=== PATIENT | female | born 1980 | race Caucasian/White ===

== ENCOUNTER → 2017-01-07 | Outpatient (CLI) | payer BC ==
--- NOTE | 2017-01-07 13:09 | Diagnostic Imaging Report ---
PROCEDURE: MRI lumbar spine. TECHNIQUE: Multiplanar, multisequence MRI of the lumbar spine was performed without contrast. INDICATION: Back pain. FINDINGS: There is satisfactory alignment of the posterior spinal line. The vertebral body heights are preserved. There are preserved disc heights also. There is minimal disc desiccation at L4/L5 level. There are minimal reactive marrow changes seen at lower endplate of L4 level, probably degenerative related. Also, lower endplate of L2 vertebral body demonstrates similar mild reactive edema. No suspicious mass. The cauda equina and conus medullaris appear grossly unremarkable. The conus terminates at L1 level. T12/L1: Unremarkable. L1/L2: Unremarkable. L2/L3: No disc herniation. No spinal canal or foraminal stenosis. L3/L4: No disc herniation. There is mild facet hypertrophy. No central canal, lateral recess or foraminal stenosis. L4/L5: There is a diffuse disc bulge and mild facet arthropathy. No central canal stenosis. There is mild to moderate narrowing of the lateral recess bilaterally. The neural foramina demonstrate mild stenosis on the left side and no significant stenosis on the right. L5/S1: There is no significant disc bulge. The mild facet hypertrophy is seen. No central canal stenosis. There is mild narrowing of the lateral recess bilaterally. The foramina demonstrate no significant stenosis. IMPRESSION: Mild lower lumbar spine degenerative disc and facet changes. Dictated by: Dictated on workstation # [id number]
== END ==
LOC: RAD 11:46
PROVIDERS: ATTEND Orthopaedic Surgery
DX: M54.16 Radiculopathy, lumbar region (principal)
CPT/HCPCS: 72148

== ENCOUNTER → 2021-09-19 | Outpatient (CLI) | payer BC ==
[2021-09-19 13:02] LABS: BILIRUBIN,URINE NEGATIVE (NEGATIVE); CLARITY,URINE CLOUDY; COLOR,URINE YELLOW; GLUCOSE, URINE (UA) NEGATIVE (NEGATIVE); KETONES,URINE NEGATIVE (NEGATIVE); LEUKOCYTE ESTERASE ,URINE NEGATIVE (NEGATIVE); NITRITE,URINE NEGATIVE (NEGATIVE); PH,URINE 5.5 (5-9); PROTEIN,URINE NEGATIVE (NEGATIVE)
[2021-09-19 13:03] LABS: BACTERIA,URINE MODERATE /HPF
[2021-09-19 13:05] LABS: URINE OTHER CLUE CELLS NOTED /HPF
== END ==
LOC: LAB FS 12:24
PROVIDERS: ATTEND Pediatrics
DX: R35.0 Frequency of micturition (principal); R30.9 Painful micturition, unspecified
CPT/HCPCS: 81000; 87077; 87088

== ENCOUNTER 2022-04-13 12:17 | Emergency (ER) | payer SELFPAY ==
[~2022-04-13] VITALS: Ht 162 cm; Wt 56.0 kg
[2022-04-13] MEDS ORDERED: fentaNYL INJ 100 MCG/2 ML AMP ONE (12:24)
--- NOTE | 2022-04-13 12:24 | ED GU-Female ---
General Stated Complaint: STOMACH AILMENT Source: patient Exam Limitations: no limitations History of Present Illness Date Seen by Provider: Apr 13, 2022 Time Seen by Provider: 12:19 Initial Comments 41-year-old female with no pertinent past medical history coming in due to severe constant sharp right flank pain, started roughly 2 hours ago, associated with nonbloody nonbilious vomiting, and she noticed blood in her urine recently. This is never happened before. She had a hydrocodone at home which she took which has not helped as of yet. LMP was roughly 1 week ago. She is otherwise denying any other acute complaints. Allergies and Home Medications Allergies Coded Allergies: No Known Drug Allergies (Unverified , 04/13/22) Patient Home Medication List Home Medication List Reviewed: Yes Ketorolac Tromethamine (Ketorolac Tromethamine) 10 Mg Tablet, 10 MG PO Q6H Prescribed by: HOPE DILLON on 04/13/22 1359 Ondansetron (Ondansetron Odt) 4 Mg Tab.rapdis, 4 MG PO Q6H PRN for NAUSEA/VOMITING-1ST LINE Prescribed by: HOPE DILLON on 04/13/22 1359 Oxycodone HCl (Oxycodone HCl) 5 Mg Tablet, 5 MG PO Q6H PRN for PAIN-SEVERE (8- 10) Prescribed by: HOPE DILLON on 04/13/22 1359 Tamsulosin HCl (Flomax) 0.4 Mg Cap, 0.4 MG PO DAILY Prescribed by: HOPE DILLON on 04/13/22 1359 Review of Systems Review of Systems Constitutional: No fever EENTM: No blurred vision Respiratory: No cough Cardiovascular: No chest pain Gastrointestinal: nausea, vomiting Genitourinary: flank pain, hematuria Musculoskeletal: no symptoms reported Skin: no symptoms reported Psychiatric/Neurological: No Symptoms Reported Endocrine: No Symptoms Reported Hematologic/Lymphatic: No Symptoms Reported All Other Systemes Reviewed Negative Unless Noted: Yes Past Jujqtkh-Lqzxpq-Jwavsb Hx Patient Social History Tobacco Use?: No Substance use?: No Alcohol Use?: No Past Medical History Surgeries: No Physical Exam Vital Signs Vital Signs - First Documented 04/13/22 13:08 Temp 36.2 Pulse 87 Resp 22 B/P (MAP) 111/64 (80) Pulse Ox 100 Capillary Refill : Height, Weight, BMI Height: '" Weight: lbs. oz. kg; BMI Method: General Appearance: WD/WN, moderate distress HEENT: PERRL/EOMI, normal ENT inspection, pharynx normal Neck: non-tender, full range of motion, supple, normal inspection Cardiovascular: regular rate, rhythm, no edema, no murmur Respiratory: chest non-tender, lungs clear, normal breath sounds, no respiratory distress, no accessory muscle use Gastrointestinal: normal bowel sounds, non tender, soft; No distended, No guarding, No rebound Back: normal inspection, no vertebral tenderness, CVA tenderness (R) Extremities: normal range of motion, non-tender, normal inspection, no pedal edema, no calf tenderness, normal capillary refill Neurologic/Psychiatric: no motor/sensory deficits, alert, normal mood/affect Skin: normal color, warm/dry Lymphatic: no adenopathy Progress/Results/Core Measures Suspected Sepsis SIRS Temperature: Pulse: Respiratory Rate: Laboratory Tests 04/13/22 12:25: White Blood Count 13.2H Blood Pressure / Mean: Laboratory Tests 04/13/22 12:25: Creatinine 0.91, Platelet Count 351, Total Bilirubin 0.9 Results/Orders Lab Results Laboratory Tests Test 04/13/22 12:25 04/13/22 13:33 Range/Units White Blood Count 13.2 H 4.3-11.0 10^3/uL Red Blood Count 4.49 3.80-5.11 10^6/uL Hemoglobin 14.6 11.5-16.0 g/dL Hematocrit 42 35-52 % Mean Corpuscular Volume 94 80-99 fL Mean Corpuscular Hemoglobin 33 25-34 pg Mean Corpuscular Hemoglobin Concent 35 32-36 g/dL Red Cell Distribution Width 12.1 10.0-14.5 % Platelet Count 351 130-400 10^3/uL Mean Platelet Volume 9.8 9.0-12.2 fL Immature Granulocyte % (Auto) 0 % Neutrophils (%) (Auto) 83 H 42-75 % Lymphocytes (%) (Auto) 12 12-44 % Monocytes (%) (Auto) 5 0-12 % Eosinophils (%) (Auto) 0 0-10 % Basophils (%) (Auto) 1 0-10 % Neutrophils # (Auto) 11.0 H 1.8-7.8 10^3/uL Lymphocytes # (Auto) 1.5 1.0-4.0 10^3/uL Monocytes # (Auto) 0.6 0.0-1.0 10^3/uL Eosinophils # (Auto) 0.0 0.0-0.3 10^3/uL Basophils # (Auto) 0.1 0.0-0.1 10^3/uL Immature Granulocyte # (Auto) 0.0 0.0-0.1 10^3/uL Sodium Level 143 135-145 MMOL/L Potassium Level 3.9 3.6-5.0 MMOL/L Chloride Level 105 98-107 MMOL/L Carbon Dioxide Level 18 L 21-32 MMOL/L Anion Gap 20 H 5-14 MMOL/L Blood Urea Nitrogen 13 7-18 MG/DL Creatinine 0.91 0.60-1.30 MG/DL Estimat Glomerular Filtration Rate 81 BUN/Creatinine Ratio 14 Glucose Level 137 H 70-105 MG/DL Calcium Level 10.2 H 8.5-10.1 MG/DL Corrected Calcium 8.5-10.1 MG/DL Total Bilirubin 0.9 0.1-1.0 MG/DL Aspartate Amino Transf (AST/SGOT) 18 5-34 U/L Alanine Aminotransferase (ALT/SGPT) 11 0-55 U/L Alkaline Phosphatase 68 40-136 U/L Total Protein 7.4 6.4-8.2 GM/DL Albumin 5.0 H 3.2-4.5 GM/DL Lipase 12 8-78 U/L Urine Color YELLOW Urine Clarity CLOUDY Urine pH 6.0 5-9 Urine Specific Hendricks >=1.030 1.016-1.022 Urine Protein 1+ H NEGATIVE Urine Glucose (UA) NEGATIVE NEGATIVE Urine Ketones 3+ H NEGATIVE Urine Nitrite NEGATIVE NEGATIVE Urine Bilirubin 1+ H NEGATIVE Urine Urobilinogen 0.2 < = 1.0 MG/DL Urine Leukocyte Esterase TRACE H NEGATIVE Urine RBC (Auto) 3+ H NEGATIVE Urine RBC 5-10 H /HPF Urine WBC 10-25 H /HPF Urine Squamous Epithelial Cells >50 H /HPF Urine Crystals NONE /LPF Urine Bacteria MODERATE H /HPF Urine Casts NONE /LPF Urine Mucus NEGATIVE /LPF Urine Culture Indicated NO Urine Test NEGATIVE NEGATIVE My Orders Orders - HOPE DILLON MD Fentanyl Inj (Sublimaze Injection) (04/13/22 12:30) Ketorolac Injection (Toradol Injection) (04/13/22 12:30) Ondansetron Injection (Zofran Injectio (04/13/22 12:30) Ct Abdomen/Pelvis Wo (04/13/22 12:24) Cbc With Automated Diff (04/13/22 12:24) Comprehensive Metabolic Panel (04/13/22 12:24) Hcg,Qualitative Urine (04/13/22 12:24) Ua Culture If Indicated (04/13/22 12:24) Lipase (04/13/22 12:24) Fentanyl Inj (Sublimaze Injection) (04/13/22 12:24) Hydromorphone Injection (Dilaudid Inject (04/13/22 12:30) Cefdinir Capsule (Omnicef Capsule) (04/13/22 14:00) Oxycodone Immediate Rel Tablet (Oxyir Ta (04/13/22 14:15) Medications Given in ED Current Medications Medications Dose Ordered Sig/Con Route Start Time Stop Time Status Last Admin Dose Admin Cefdinir 300 mg ONCE ONCE PO 04/13/22 14:00 04/13/22 14:01 DC 04/13/22 14:00 300 MG Fentanyl Citrate 50 mcg ONCE ONCE IVP 04/13/22 12:30 04/13/22 12:32 DC 04/13/22 12:27 50 MCG Hydromorphone HCl 0.5 mg ONCE PRN IV 04/13/22 12:30 04/13/22 12:33 0.5 MG Ondansetron HCl 4 mg ONCE ONCE IVP 04/13/22 12:30 04/13/22 12:32 DC 04/13/22 12:27 4 MG Vital Signs/I&O 04/13/22 13:08 Temp 36.2 Pulse 87 Resp 22 B/P (MAP) 111/64 (80) Pulse Ox 100 Capillary Refill : Progress Note : Progress Note 41-year-old female with above history coming in due to right flank pain. ABCs were intact and vitals were stable on presentation although she was in signifi cant pain. An IV was placed and she was given fentanyl for pain and Zofran for her nausea. Basic labs obtained and urinalysis does have blood in it with some bacteria, difficult to ascertain if there is infection as well. We will give her cefdinir just in case. CT abdomen and pelvis without contrast concerning for right-sided stone with ureterolithiasis and hydronephrosis. Patient is resting comfortably now, and I believe she is a good candidate for a trial of passage at home. I will give her information on how to follow-up with Dr. Silverio. She was then discharged home in stable condition with strict return precautions Diagnostic Imaging Diagonstic Imaging: CT Plain Films/CT/US/NM/MRI: abdomen, pelvis Comments [facility] [place], [place] NAME: MO RUST [facility] REC#: [id number] PT STATUS: REG ER : 1980 PHYSICIAN: HOPE DILLON MD ADMIT DATE: 04/13/22/ER FS Signed Date of Exam:04/13/22 CT ABDOMEN/PELVIS WO PROCEDURE: CT abdomen and pelvis without contrast. TECHNIQUE: Multiple contiguous axial images were obtained through the abdomen and pelvis without the use of intravenous contrast. Auto Exposure Controls were utilized during the CT exam to meet ALARA standards for radiation dose reduction. INDICATION: Right flank pain. I have no priors. A small calculus of 1.6 mm on the right is nearly completely through the ureterovesical junction and almost passed fully into the bladder lumen. The stone results in a mild to moderate degree of upstream right-sided hydroureteronephrosis with no urinoma, subcapsular collection or abscess. No additional radiopaque urinary tract stones are found. Contralateral left kidney unobstructed. Gallbladder surgically absent. The uterus and adnexa unremarkable. There is no appendicitis or diverticulitis. The remaining abdominal pelvic solid and hollow viscera unobstructed, nonfocal and nonacute. IMPRESSION: Mild to moderate degree of right hydroureteronephrosis is secondary to a calculus at the distal right UVJ measuring 1.6 mm with no fluid collection. No other significant abnormality. Dictated by: Dictated on workstation # [id number] Dict: 04/13/22 1303 Trans: 04/13/22 1317 [facility] [id number] Interpreted by: GERARD ART Electronically signed by: GERARD ART 04/13/22 1317 Departure Impression Primary Impression: Ureterolithiasis Disposition: 01 HOME, SELF-CARE Condition: Stable Departure-Patient Inst. Decision time for Depature: 13:56 Referrals: SALLY MONTES MD (PCP/Family) Primary Care Physician RADHA SILVERIO MD Patient Instructions: Kidney Stones (DC) Add. Discharge Instructions: Take the Toradol on schedule and Zofran as needed for nausea. Take the oxycodone if pain is too much. He also take the Flomax to try to help the stone come out. Follow-up with Steve who is the urologist who is capable of taking s tones out if it does not pass by itself. Be sure to urinate through the strainer. Scripts Cefdinir (Cefdinir) 300 Mg Capsule 300 MG PO BID for 5 Days, #10 CAP Prov: HOPE DILLON MD 04/13/22 Ondansetron (Ondansetron Odt) 4 Mg Tab.rapdis 4 MG PO Q6H PRN for NAUSEA/VOMITING-1ST LINE for 5 Days, #20 TAB Prov: HOPE DILLON MD 04/13/22 Ketorolac Tromethamine (Ketorolac Tromethamine) 10 Mg Tablet 10 MG PO Q6H for 3 Days, #12 TAB Prov: HOPE DILLON MD 04/13/22 Tamsulosin HCl (Flomax) 0.4 Mg Cap 0.4 MG PO DAILY for 14 Days, #14 CAP Prov: HOPE DILLON MD 04/13/22 Oxycodone HCl (Oxycodone HCl) 5 Mg Tablet 5 MG PO Q6H PRN for PAIN-SEVERE (8-10) for 3 Days, #12 TAB Prov: HOPE DILLON MD 04/13/22 Work/School Note: Work Release Form Date Seen in the Emergency Department: Apr 13, 2022 Return to Work: Apr 15, 2022 Restrictions: No Restrictions HOPE DILLON MD Apr 13, 2022 12:24
[2022-04-13] MEDS ORDERED: ONDANSETRON 4 MG/2 ML (SDV) Z0FRAN IVP ONE (12:30)
[2022-04-13] MEDS ORDERED: HYDROmorphone 2 MG/ML VIAL (DILAUDID) IV PRN (12:30)
[2022-04-13] MEDS ORDERED: fentaNYL INJ 100 MCG/2 ML AMP IVP ONE (12:30)
[2022-04-13] MEDS ORDERED: KETOROLAC 30 MG/ML VIAL IVP ONE (12:30)
[2022-04-13 12:31] LABS: BASOPHILS # (AUTO) 0.1 10^3/uL (0.0-0.1); BASOPHILS % (AUTO) 1 % (0-10); EOSINOPHILS % (AUTO) 0 % (0-10); HEMATOCRIT 42 % (35-52); HEMOGLOBIN 14.6 g/dL (11.5-16.0); LYMPHOCYTES # (AUTO) 1.5 10^3/uL (1.0-4.0); LYMPHOCYTES % (AUTO) 12 % (12-44); MEAN CORPUSCULAR HEMOGLOBIN 33 pg (25-34); MEAN CORPUSCULAR HGB CONC 35 g/dL (32-36); MEAN CORPUSCULAR VOLUME 94 fL (80-99); MEAN PLATELET VOLUME 9.8 fL (9.0-12.2); MONOCYTES # (AUTO) 0.6 10^3/uL (0.0-1.0); MONOCYTES % (AUTO) 5 % (0-12); NEUTROPHILS % (AUTO) 83 % (42-75); PLATELET COUNT 351 10^3/uL (130-400); WHITE BLOOD COUNT 13.2 10^3/uL (4.3-11.0)
[2022-04-13 12:47] LABS: CARBON DIOXIDE 18 MMOL/L (21-32); CHLORIDE 105 MMOL/L (98-107); POTASSIUM 3.9 MMOL/L (3.6-5.0); SODIUM 143 MMOL/L (135-145)
[2022-04-13 12:48] LABS: ALANINE AMINOTRANSFERASE 11 U/L (0-55); ALKALINE PHOSPHATASE 68 U/L (40-136); BILIRUBIN,TOTAL 0.9 MG/DL (0.1-1.0); BUN/CREATININE RATIO 14; CALCIUM 10.2 MG/DL (8.5-10.1); CREATININE SERUM 0.91 MG/DL (0.60-1.30); GFR ESTIMATED 81; GLUCOSE 137 MG/DL (70-105); TOTAL PROTEIN 7.4 GM/DL (6.4-8.2)
[2022-04-13 13:08] VITALS: BP 111/64
--- NOTE | 2022-04-13 13:12 | Diagnostic Imaging Report ---
PROCEDURE: CT abdomen and pelvis without contrast. TECHNIQUE: Multiple contiguous axial images were obtained through the abdomen and pelvis without the use of intravenous contrast. Auto Exposure Controls were utilized during the CT exam to meet ALARA standards for radiation dose reduction. INDICATION: Right flank pain. I have no priors. A small calculus of 1.6 mm on the right is nearly completely through the ureterovesical junction and almost passed fully into the bladder lumen. The stone results in a mild to moderate degree of upstream right-sided hydroureteronephrosis with no urinoma, subcapsular collection or abscess. No additional radiopaque urinary tract stones are found. Contralateral left kidney unobstructed. Gallbladder surgically absent. The uterus and adnexa unremarkable. There is no appendicitis or diverticulitis. The remaining abdominal pelvic solid and hollow viscera unobstructed, nonfocal and nonacute. IMPRESSION: Mild to moderate degree of right hydroureteronephrosis is secondary to a calculus at the distal right UVJ measuring 1.6 mm with no fluid collection. No other significant abnormality. Dictated by: Dictated on workstation # [id number]
[2022-04-13 13:38] LABS: BILIRUBIN,URINE 1+ (NEGATIVE); CLARITY,URINE CLOUDY; COLOR,URINE YELLOW; GLUCOSE, URINE (UA) NEGATIVE (NEGATIVE); KETONES,URINE 3+ (NEGATIVE); LEUKOCYTE ESTERASE ,URINE TRACE (NEGATIVE); NITRITE,URINE NEGATIVE (NEGATIVE); PROTEIN,URINE 1+ (NEGATIVE)
[2022-04-13 13:41] LABS: BACTERIA,URINE MODERATE /HPF; SQUAMOUS EPITHELIAL CELL,UR >50 /HPF
[2022-04-13] MEDS ORDERED: TMSL.4C PO (13:59)
[2022-04-13] MEDS ORDERED: KETO10TA PO (13:59)
[2022-04-13] MEDS ORDERED: ONDA4TAB11 PO (13:59)
[2022-04-13] MEDS ORDERED: OXYC5TAB PO (13:59)
[2022-04-13] MEDS ORDERED: CEFDINIR 300 MG (OMNICEF) CAP PO ONE (14:00)
[2022-04-13] MEDS ORDERED: CEFD300C3 PO (14:05)
== END 2022-04-13 14:05 | disposition home or self-care (01) ==
LOC: EDUNIT# 12:17 → ER FS 12:19
DX: N13.2 Hydronephrosis with renal and ureteral calculous obstruction (principal); Z32.02 Encounter for pregnancy test, result negative
CPT/HCPCS: 36415; 74176; 80053; 81000; 83690; 84703; 85025

== ENCOUNTER 2022-04-13 19:00 | Emergency (ER) | payer SELFPAY ==
[~2022-04-13 19:00] MED LIST: CEFD300C3 PO; KETO10TA PO; ONDA4TAB11 PO; OXYC5TAB PO; TMSL.4C PO
[2022-04-13] MEDS ORDERED: ACETAMINOPHEN 500 MG TAB (TYLENOL) PO ONE (19:15)
[2022-04-13] MEDS ORDERED: HYDROmorphone 2 MG/ML VIAL (DILAUDID) IV ONE (19:15)
[2022-04-13] MEDS ORDERED: ONDANSETRON 4 MG/2 ML (SDV) Z0FRAN ONE (19:24)
[2022-04-13] MEDS: NS IV 1000 ML 1,000 ML IV SCH ×2 (19:26→20:30)
--- NOTE | 2022-04-13 19:26 | ED GU-Female ---
General Chief Complaint: Abdominal/GI Problems Stated Complaint: ABDOMINAL PAIN Nursing Triage Note: Pt complaining of right flank pain. Pt was in ED earlier today and diagnosed with a kidney stone Source: patient Exam Limitations: no limitations History of Present Illness Date Seen by Provider: Apr 13, 2022 Time Seen by Provider: 19:05 Initial Comments 41-year-old female seen by me earlier today due to ureterolithiasis on the right side. She was treated here earlier today, try to go home with oxycodone for trial of passage. She took 2 oxycodone and the pain is uncontrollable. She is also continuing to have nausea. Pain is severe, constant, sharp, in her right flank, and only slightly better with the pain medicine at home. She is otherwise denying any other acute complaints. Allergies and Home Medications Allergies Coded Allergies: No Known Drug Allergies (Unverified , 04/13/22) Patient Home Medication List Home Medication List Reviewed: Yes Cefdinir (Cefdinir) 300 Mg Capsule, 300 MG PO BID Prescribed by: HOPE DILLON on 04/13/22 1405 Ketorolac Tromethamine (Ketorolac Tromethamine) 10 Mg Tablet, 10 MG PO Q6H Prescribed by: HOPE DILLON on 04/13/22 1359 Ondansetron (Ondansetron Odt) 4 Mg Tab.rapdis, 4 MG PO Q6H PRN for NAUSEA/VOMITING-1ST LINE Prescribed by: HOPE DILLON on 04/13/22 1359 Oxycodone HCl (Oxycodone HCl) 5 Mg Tablet, 5 MG PO Q6H PRN for PAIN-SEVERE (8- 10) Prescribed by: HOPE DILLON on 04/13/22 1359 Tamsulosin HCl (Flomax) 0.4 Mg Cap, 0.4 MG PO DAILY Prescribed by: HOPE DILLON on 04/13/22 1359 Review of Systems Review of Systems Constitutional: fever EENTM: No blurred vision Respiratory: no symptoms reported Cardiovascular: no symptoms reported Gastrointestinal: no symptoms reported Genitourinary: flank pain Musculoskeletal: no symptoms reported Skin: no symptoms reported Psychiatric/Neurological: No Symptoms Reported Endocrine: No Symptoms Reported Hematologic/Lymphatic: No Symptoms Reported All Other Systemes Reviewed Negative Unless Noted: Yes Past Xesulcu-Kusekq-Zlkilf Hx Patient Social History Tobacco Use?: No Use of E-Cig and/or Vaping dev: No Substance use?: No Alcohol Use?: No Past Medical History Surgeries: No Physical Exam Vital Signs Vital Signs - First Documented 04/13/22 19:05 Temp 38.4 Pulse 104 Resp 20 B/P (MAP) 118/67 (84) Pulse Ox 99 O2 Delivery Room Air Capillary Refill : Less Than 3 Seconds Height, Weight, BMI Height: '" Weight: lbs. oz. kg; 21.00 BMI Method: General Appearance: WD/WN, mild distress HEENT: PERRL/EOMI, normal ENT inspection, pharynx normal Neck: non-tender, full range of motion, supple, normal inspection Cardiovascular: regular rate, rhythm, no edema, no murmur Respiratory: chest non-tender, lungs clear, normal breath sounds, no respiratory distress, no accessory muscle use Gastrointestinal: normal bowel sounds, non tender, soft; No distended, No guarding, No rebound Back: normal inspection, CVA tenderness (R) Extremities: normal range of motion, non-tender, normal inspection, no pedal edema, no calf tenderness, normal capillary refill Neurologic/Psychiatric: no motor/sensory deficits, alert, normal mood/affect Skin: normal color, warm/dry Lymphatic: no adenopathy Focused Exam Lactate Level 04/13/22 19:23: Lactic Acid Level 2.42*H Lactic Acid Level Laboratory Tests Test 04/13/22 19:23 Lactic Acid Level 2.42 MMOL/L (0.50-2.00) *H Progress/Results/Core Measures Suspected Sepsis SIRS Temperature: Pulse: 104 Respiratory Rate: 20 Laboratory Tests 04/13/22 19:50: White Blood Count 15.8H Blood Pressure 118 /67 Mean: 84 04/13/22 19:23: Lactic Acid Level 2.42*H Laboratory Tests 04/13/22 19:23: INR Comment 0.9 04/13/22 19:50: Creatinine 1.09, Platelet Count 229, Total Bilirubin 1.1H Results/Orders Lab Results Laboratory Tests Test 04/13/22 19:23 04/13/22 19:50 Range/Units Prothrombin Time 12.8 12.2-14.7 SEC INR Comment 0.9 0.8-1.4 Activated Partial Thromboplast Time 22 L 24-35 SEC Lactic Acid Level 2.42 *H 0.50-2.00 MMOL/L White Blood Count 15.8 H 4.3-11.0 10^3/uL Red Blood Count 3.73 L 3.80-5.11 10^6/uL Hemoglobin 12.5 11.5-16.0 g/dL Hematocrit 35 35-52 % Mean Corpuscular Volume 95 80-99 fL Mean Corpuscular Hemoglobin 34 25-34 pg Mean Corpuscular Hemoglobin Concent 35 32-36 g/dL Red Cell Distribution Width 12.0 10.0-14.5 % Platelet Count 229 130-400 10^3/uL Mean Platelet Volume 9.8 9.0-12.2 fL Immature Granulocyte % (Auto) 0 % Neutrophils (%) (Auto) 97 H 42-75 % Lymphocytes (%) (Auto) 2 L 12-44 % Monocytes (%) (Auto) 1 0-12 % Eosinophils (%) (Auto) 0 0-10 % Basophils (%) (Auto) 0 0-10 % Neutrophils # (Auto) 15.3 H 1.8-7.8 10^3/uL Lymphocytes # (Auto) 0.3 L 1.0-4.0 10^3/uL Monocytes # (Auto) 0.1 0.0-1.0 10^3/uL Eosinophils # (Auto) 0.0 0.0-0.3 10^3/uL Basophils # (Auto) 0.0 0.0-0.1 10^3/uL Immature Granulocyte # (Auto) 0.1 0.0-0.1 10^3/uL Neutrophils % (Manual) 95 % Lymphocytes % (Manual) 1 % Monocytes % (Manual) 4 % Sodium Level 140 135-145 MMOL/L Potassium Level 3.3 L 3.6-5.0 MMOL/L Chloride Level 107 98-107 MMOL/L Carbon Dioxide Level 19 L 21-32 MMOL/L Anion Gap 14 5-14 MMOL/L Blood Urea Nitrogen 17 7-18 MG/DL Creatinine 1.09 0.60-1.30 MG/DL Estimat Glomerular Filtration Rate 65 BUN/Creatinine Ratio 16 Glucose Level 126 H 70-105 MG/DL Calcium Level 8.8 8.5-10.1 MG/DL Corrected Calcium 8.6 8.5-10.1 MG/DL Total Bilirubin 1.1 H 0.1-1.0 MG/DL Aspartate Amino Transf (AST/SGOT) 31 5-34 U/L Alanine Aminotransferase (ALT/SGPT) 24 0-55 U/L Alkaline Phosphatase 60 40-136 U/L Total Protein 5.9 L 6.4-8.2 GM/DL Albumin 4.2 3.2-4.5 GM/DL My Orders Orders - HOPE DILLON MD Acetaminophen Tablet (Tylenol Tablet) (04/13/22 19:15) Cbc With Automated Diff (04/13/22 19:13) Comprehensive Metabolic Panel (04/13/22 19:13) Blood Culture (04/13/22 19:13) Protime With Inr (04/13/22:13) Partial Thromboplastin Time (04/13/22 19:13) Ed Iv/Invasive Line Start (04/13/22 19:13) Vital Signs Adult Sepsis Patie Q15M (04/13/22 19:13) O2 (04/13/22 19:13) Remove Rings In Anticipation O (04/13/22 19:13) Lactic Acid Analyzer (04/13/22 19:13) Ns Iv 1000 Ml (Sodium Chloride 0.9%) (04/13/22 19:15) Hydromorphone Injection (Dilaudid Inject (04/13/22 19:15) Ondansetron Injection (Zofran Injectio (04/13/22 19:24) Ceftriaxone 1 Gm Pre-Mix (Rocephin 1 Gm (04/13/22 19:30) Ondansetron Injection (Zofran Injectio (04/13/22 19:45) Manual Differential (04/13/22 19:50) Ns Iv 1000 Ml (Sodium Chloride 0.9%) (04/13/22 21:45) Medications Given in ED Current Medications Medications Dose Ordered Sig/Con Route Start Time Stop Time Status Last Admin Dose Admin Acetaminophen 1,000 mg ONCE ONCE PO 04/13/22 19:15 04/13/22 19:16 DC 04/13/22 19:26 1,000 MG Ceftriaxone Sodium/Dextrose 50 ml @ 100 mls/hr ONCE ONCE IV 04/13/22 19:30 04/13/22 19:59 DC 04/13/22 19:30 100 MLS/HR Hydromorphone HCl 0.5 mg ONCE ONCE IV 04/13/22 19:15 04/13/22 19:16 DC 04/13/22 19:27 0.5 MG Ondansetron HCl 4 mg ONCE ONCE IVP 04/13/22 19:45 04/13/22 19:46 DC 04/13/22 19:32 4 MG Vital Signs/I&O 04/13/22 19:05 Temp 38.4 Pulse 104 Resp 20 B/P (MAP) 118/67 (84) Pulse Ox 99 O2 Delivery Room Air Capillary Refill : Less Than 3 Seconds Blood Pressure Mean: 84 Progress Note : Progress Note 41-year-old female with above history coming in with known ureterolithiasis with hydronephrosis. The patient was febrile on arrival here, heart rate in the low 100s. An IV was placed, cultures drawn, lactic drawn, given ceftriaxone for likely urinary source. She has a known kidney stone on the right with some hydronephrosis. The oxycodone was not helping at home, so we gave her IV Dilaudid here and Zofran. Significant for white blood cell count just under 16 which is about from previously today, creatinine around 1.09 from 0.91 earlier, lactate elevated at 2.4. She was given 2 L of IV fluids. Pain well controlled on reassessment. Given the fever with the worsening pain, contacted our hospitalist for potential admission. Given we do not have a urologist on-call, he would prefer this to be transferred somewhere in case she needs emergent stent placement if she becomes more septic. I contacted [facility] in [place] and discussed the case with their urologist Dr. Meier who agreed that this patient does require admission. Diagnostic Imaging Diagonstic Imaging: CT Comments Obtained from prior ER visit [facility] [place], [place] NAME: RUSTMO L [facility] REC#: [id number] PT STATUS: REG ER : 1980 PHYSICIAN: HOPE DILLON MD ADMIT DATE: 04/13/22/ER FS Signed Date of Exam:04/13/22 CT ABDOMEN/PELVIS WO PROCEDURE: CT abdomen and pelvis without contrast. TECHNIQUE: Multiple contiguous axial images were obtained through the abdomen and pelvis without the use of intravenous contrast. Auto Exposure Controls were utilized during the CT exam to meet ALARA standards for radiation dose reduction. INDICATION: Right flank pain. I have no priors. A small calculus of 1.6 mm on the right is nearly completely through the ureterovesical junction and almost passed fully into the bladder lumen. The stone results in a mild to moderate degree of upstream right-sided hydroureteronephrosis with no urinoma, subcapsular collection or abscess. No additional radiopaque urinary tract stones are found. Contralateral left kidney unobstructed. Gallbladder surgically absent. The uterus and adnexa unremarkable. There is no appendicitis or diverticulitis. The remaining abdominal pelvic solid and hollow viscera unobstructed, nonfocal and nonacute. IMPRESSION: Mild to moderate degree of right hydroureteronephrosis is secondary to a calculus at the distal right UVJ measuring 1.6 mm with no fluid collection. No other significant abnormality. Dictated by: Dictated on workstation # [id number] Dict: 04/13/22 1303 Trans: 04/13/22 1317 [facility] [id number] Interpreted by: GERARD ART Electronically signed by: GERARD ART 04/13/22 1317 Departure Impression Primary Impression: Ureterolithiasis Additional Impression: Sepsis Qualified Codes: A41.9 - Sepsis, unspecified organism Disposition: XFER SHT-TRM HOSP Condition: Stable Transfer Transfer Reason: Exceeds level of care Transfer Progress Notes Called [facility] at 20:35, no beds available Called [facility] at [address] Meier, urology at 2110, and he would like admitted to their hospitalist. Discussed with hospitalist Dr. Vasques at 221 and accepted for transfer. Transfer Time: 22:30 Transfer Facility: [facility] Method of Transfer: Private Vehicle (patient adament she not take an ambulance, she said she would go home if not able to take private vehicle) Departure-Patient Inst. Referrals: SALLY MONTES MD (PCP/Family) Primary Care Physician HOPE DILLON MD Apr 13, 2022 19:26
[2022-04-13] MEDS ORDERED: cefTRIAXone 1 GM PRE-MIX 50 ML IV ONE (19:30)
[2022-04-13 19:41] LABS: INR 0.9 (0.8-1.4); PROTHROMBIN TIME PATIENT 12.8 SEC (12.2-14.7)
[2022-04-13] MEDS ORDERED: ONDANSETRON 4 MG/2 ML (SDV) Z0FRAN IVP ONE (19:45)
[2022-04-13 19:53] LABS: BASOPHILS % (AUTO) 0 % (0-10); EOSINOPHILS % (AUTO) 0 % (0-10); HEMATOCRIT 35 % (35-52); HEMOGLOBIN 12.5 g/dL (11.5-16.0); LYMPHOCYTES # (AUTO) 0.3 10^3/uL (1.0-4.0); LYMPHOCYTES % (AUTO) 2 % (12-44); MEAN CORPUSCULAR HEMOGLOBIN 34 pg (25-34); MEAN CORPUSCULAR HGB CONC 35 g/dL (32-36); MEAN CORPUSCULAR VOLUME 95 fL (80-99); MEAN PLATELET VOLUME 9.8 fL (9.0-12.2); MONOCYTES # (AUTO) 0.1 10^3/uL (0.0-1.0); MONOCYTES % (AUTO) 1 % (0-12); NEUTROPHILS # (AUTO) 15.3 10^3/uL (1.8-7.8); NEUTROPHILS % (AUTO) 97 % (42-75); PLATELET COUNT 229 10^3/uL (130-400); WHITE BLOOD COUNT 15.8 10^3/uL (4.3-11.0)
[2022-04-13 20:14] LABS: ALBUMIN 4.2 GM/DL (3.2-4.5); BILIRUBIN,TOTAL 1.1 MG/DL (0.1-1.0); CALCIUM 8.8 MG/DL (8.5-10.1); CREATININE SERUM 1.09 MG/DL (0.60-1.30); POTASSIUM 3.3 MMOL/L (3.6-5.0); TOTAL PROTEIN 5.9 GM/DL (6.4-8.2)
[2022-04-13 20:37] LABS: LYMPHOCYTES % (MANUAL) 1 %; MONOCYTES % (MANUAL) 4 %; NEUTROPHILS % (MANUAL) 95 %
[2022-04-13] MEDS ORDERED: NS IV 1000 ML 1,000 ML IV STA (21:45)
[2022-04-13 22:39] VITALS: BP 96/59
== END 2022-04-13 22:41 | disposition short-term general hospital (02) ==
LOC: EDUNIT# 19:00 → ER FS 19:03
DX: A41.9 Sepsis, unspecified organism (principal); N13.2 Hydronephrosis with renal and ureteral calculous obstruction
CPT/HCPCS: 36415; 80053; 83605; 85007; 85027; 85610; 85730; 87040